=== PATIENT | female | born 1965 | race Caucasian/White ===

== ENCOUNTER 2019-08-05 09:15 | Outpatient (CLI) | payer OTHER ==
[2019-08-05] MEDS ORDERED: NAPR-856 PO (09:58)
[2019-08-05] MEDS ORDERED: CHOL100012 PO (09:58)
[2019-08-05] MEDS ORDERED: ESTR1TAB44 PO (09:58)
[2019-08-05] MEDS ORDERED: ASCO-184 PO (09:58)
[2019-08-05] MEDS ORDERED: CALC200T3 PO (09:58)
== END 2019-08-05 23:59 | disposition home or self-care (01) ==
LOC: STAR 09:15
PROVIDERS: ATTEND Orthopaedic Surgery Foot and Ankle Surgery
DX: Z02.9 Encounter for administrative examinations, unspecified (principal)

== ENCOUNTER 2019-08-15 11:01 | Day surgery (SDC) | payer OTHER ==
[2019-08-05 09:49] VITALS: BP 123/81
[~2019-08-15] VITALS: Ht 157.5 cm; Wt 59.8 kg
[~2019-08-15 11:01] MED LIST: ASCO-184 PO; CALC200T3 PO; CHOL100012 PO; ESTR1TAB44 PO; NAPR-856 PO
[2019-08-15] MEDS ORDERED: LACTATED RINGERS 1,000 ML IV SCH (11:18)
[2019-08-15] MEDS ORDERED: PROMETHAZINE 25 MG/ML, 1ML IV PRN (12:00)
[2019-08-15] MEDS ORDERED: hydrALAzine 20 MG/ML, 1ML IV PRN (12:00)
[2019-08-15] MEDS ORDERED: OXYcodone 5 MG/5 ML ORAL.SOL UDC PO PRN (12:00)
[2019-08-15] MEDS ORDERED: LABETALOL 5MG/ML, 20ML IV PRN (12:00)
[2019-08-15] MEDS ORDERED: FENTANYL PF 100 MCG/2ML IV PRN (12:00)
[2019-08-15] MEDS ORDERED: HYDROmorphone 2 MG/ML, 1ML IVPush PRN (12:00)
[2019-08-15] MEDS ORDERED: ACETAMINOPHEN 500 MG TABLET PO ONE (12:00)
[2019-08-15] MEDS ORDERED: EPHEDRINE 50 MG/ML, 1ML IVPush PRN (12:00)
[2019-08-15] MEDS ORDERED: GABAPENTIN 300 MG CAPSULE PO ONE (12:00)
[2019-08-15] MEDS ORDERED: ONDANSETRON 2MG/ML, 2ML IV PRN (12:00)
[2019-08-15] MEDS ORDERED: MEPERIDINE/PF 25MG/ML,1ML IVPush PRN (12:00)
[2019-08-15] MEDS ORDERED: MIDAZOLAM 1 MG/ML, 2ML ONE (12:07)
[2019-08-15] MEDS ORDERED: FENTANYL PF 250 MCG/5ML ONE (12:08)
[2019-08-15] MEDS ORDERED: BUPIVACAINE/PF 0.5% ONE (12:24)
[2019-08-15] MEDS ORDERED: LIDOCAINE 1%, 20ML ONE (12:25)
[2019-08-15] MEDS ORDERED: PROPOFOL 10 MG/ML, 20ML ONE (12:35)
[2019-08-15] MEDS ORDERED: CEFAZOLIN 1,000 MG ONE ×2 (12:35)
[2019-08-15] MEDS ORDERED: KETOROLAC 30 MG/1 ML ONE (12:35)
[2019-08-15] MEDS ORDERED: LIDOCAINE-MPF 2% ,5ML ONE (12:35)
[2019-08-15] MEDS ORDERED: DEXAMETHASONE 4 MG/ML, 1ML ONE ×2 (12:35)
[2019-08-15] MEDS ORDERED: SODIUM CHLORIDE 0.9% PF 10ML ONE ×2 (12:35→13:06)
[2019-08-15] MEDS ORDERED: ONDANSETRON 2MG/ML, 2ML ONE (12:35)
[2019-08-15] MEDS ORDERED: OXYcodone 5 MG/5 ML ORAL.SOL UDC ONE (14:06)
[2019-08-15] MEDS ORDERED: HYDROmorphone 1 MG/ML, 1ML INJ ONE (14:06)
== END 2019-08-15 16:15 | disposition home or self-care (01) ==
LOC: OUT 11:01
PROVIDERS: ATTEND Orthopaedic Surgery Foot and Ankle Surgery
DX: M20.21 Hallux rigidus, right foot (principal); M65.871 Other synovitis and tenosynovitis, right ankle and foot; M25.774 Osteophyte, right foot; Z87.891 Personal history of nicotine dependence; Z91.040 Latex allergy status
CPT/HCPCS: 28225; 28291; C1763; J0690; J1100; J1170; J1885; J2250; J2405; J2704; J3010; J7120